=== PATIENT | male | born 1940 | race Hispanic/Latino ===

== ENCOUNTER 2024-12-21 17:43 | Emergency (ER) | payer OTHER ==
--- OUTSIDE RECORDS SUMMARY | 2024-12-21 17:47 | XMS REPORT | Continuity of Care Document ---
Author Name Unknown Address [address] [facility]. 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 Name Role Phone Mendez Small MD Primary Care Physician [phone] Jose Bernal Attending Clinician Unavail nataly Sandy MD, Alia Joya Attending Clinician + Rony Hammond Attending Clinician UnavailSelma Loyola Attending Clinician [phone] Anup Murray Attending Clinician Unavaila dede Renteria Attending Clinician Unavailable Mendez Small Admitting Clinician Unavailable Jose Bernal Admitting Clinician Unavail able Physician, No Primary or Family Admitting Clinic alex Unavailable Dexter Admitting Clinician Unavailable Payers Payer Name Policy Type Policy Number Effective Date Expirati on Date Source Problems Condition Name Condition Details Condition Category Status Onset Date Resolution Date Last Treatment Date Treating Clinician Comments Source Alzheimer' s disease Alzheimer' s disease Disease Active 03-27 00:00: 00 Memelizabeth l Javi Epic 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 03-27 00:00: 00 Anyaoria l Javi Epic Memory loss Memory loss Disease Active 03-27 00:00: 00 Anyaoria l Colo Epic 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 03-27 00:00: 00 Anyaoria l Colo Epic Allergies, Adverse Reactions, Alerts Allergy Name Allergy Type Status Severity Reaction(s) Onset Date Inactive Date Treating Clinician Comments Source No Known Allergie s DA Active U 2023-11 00:00: 00 [facility] No Known Allergie s DA Active U 2021-11 00:00: 00 [facility] No Known Allergie s DA Active U 2018-11 00:00: 00 [facility] No Known Allergie s DA Active U 01-15 00:00: 00 [facility] Social History Social Habit Start Date Stop Date Quantity Comments Source Gender identity 2024-02-07 14:17:32 Identifies as male gender (finding) [facility] Sexual orientation [facility] Smoking Status Start Date Stop Date Source Tobacco smoking consumption unknown [facility] Medications Ordered Medication Name Filled Medication Name Start Date Stop Date Current Medication? Ordering Clinician Indication Dosage Frequency Signature (SIG) Comments Components Source sertraline (Zoloft) 25 MG tablet sertraline (Zoloft) 25 MG tablet 2023-11- 00:00: 00 Yes 50mg QD TAKE 2 TABLETS BY MOUTH EVERY DAY Derek hernandez Colo Epic sertraline (Zoloft) 25 MG tablet sertraline (Zoloft) 25 MG tablet 08-12 00:00: 00 11-11 00:00 :00 No 50mg QD TAKE 2 TABLETS BY MOUTH EVERY DAY [facility] sertraline (Zoloft) 25 MG tablet sertraline (Zoloft) 25 MG tablet 05-21 00:00: 00 08-12 00:00 :00 No 50mg QD TAKE 2 TABLETS BY MOUTH EVERY DAY [facility] LORazepam (Ativan) 0.5 MG tablet LORazepam (Ativan) 0.5 MG tablet 03-27 14:38: 31 Yes 1{tbl} 1 tablet 1 time each day at the same time. [facility] QUEtiapine (SEROquel) 50 MG tablet QUEtiapine (SEROquel) 50 MG tablet 03-21 21:54: 16 Yes TAKE 1 TABLET BY MOUTH EVERY MORNING AND 2 TABLETS BY MOUTH EVERY EVENING for [address] pantoprazol e (ProtoNix) 40 MG EC tablet pantoprazol e (ProtoNix) 40 MG EC tablet 03-21 21:54: 16 Yes 1{tbl} 1 tablet Orally Once a day for 30 day(s) [facility] donepezil (Aricept) 5 MG tablet donepezil (Aricept) 5 MG tablet 03-21 21:54: 16 Yes TAKE 1 TABLET BY MOUTH ONCE A DAY IN THE MORNING WITH BREAKFAST Orally as directed for [address] Encounters Start Date/Time End Date/Time Encounter Type Admission Type Attending [facility] Care Facility Care Department Encounter ID Source 2020-10-15 12:04:00 Inpatient [facility] [id number] [facility] 2019-06-08 14:16:00 Inpatient YU BernalJose [facility] [id number] [facility] 2024-11-10 00:00:00 2024-11-11 08:45:22 Alia Chappell [id number] Derek Moreiraann Epic 2024-10-07 12:43:00 2024-10-07 18:28:00 Emergency EM oRny Hammond [facility] [id number] 42 [facility] 2024-10-07 12:43:00 2024-10-07 18:28:00 Emergency EM Rony Hammond [facility] [id number] 42 [facility] 2024-08-12 00:00:00 2024-08-12 13:19:46 Refill Selma Jiménezadena [id number] [facility]24-[facility]-19 00:00:00 2024-05-21 16:50:11 Refill Selma Jiménezadena [id number] [facility] 2022-09-29 14:38:00 2022-09-29 15:47:00 Emergency EM Anup Murray [facility] [id number] 31 [facility] 2022-09-29 14:38:00 2022-09-29 15:47:00 Emergency EM Anup Murray [facility] [id number] [facility] 2022-01-16 06:55:00 2022-01-16 06:55:00 Outpatient [facility] VFP VFP [id number] [facility] Results Test Description Test Time Test Comments Results Result Co mments Source Urine Source? Clean CatchDRUGS OF ABUSE SCREEN [id number] 17:41:00* Test Item Value Reference Range Interpretation Comme nts URN COCAINE (test code = COCAURN) NEGATIVE See_Comment [Automated messa ge] The system which generated this result transmitted reference range: <300 ng/mL. The reference range was not used to interpret this result as normal/abnormal. URN CANNABINOIDS (test code = CANNABURN) NEGATIVE See_Comment [Automated mes katarina] The system which generated this result transmitted reference range: <50 ng/mL. The reference range was not used to interpret this result as normal/abnormal. URN AMPHETAMINE (test code = AMPHETURN) NEGATIVE See_Comment [Automated mes katarina] The system which generated this result transmitted reference range: <1000 ng/mL. The reference range was not used to interpret this result as normal/abnormal. URN BARBITURATE (test code = BARBITURN) NEGATIVE See_Comment [Automated mes katarina] The system which generated this result transmitted reference range: <200 ng/mL. The reference range was not used to interpret this result as normal/abnormal. URN BENZODIAZEPINE (test code = BENZOURN) POSITIVE See_Comment [Automated mess age] The system which generated this result transmitted reference range: <200 ng/mL. The reference range was not used to interpret this result as normal/abnormal. URN OPIATES (test code = OPIATURN) NEGATIVE See_Comment [Automated messa ge] The system which generated this result transmitted reference range: <300 ng/mL. The reference range was not used to interpret this result as normal/abnormal. URN PHENCYCLIDINE (PCP) (test code = PHENCURN) NEGATIVE See_Comment [Automate d message] The system which generated this result transmitted reference range: <25 ng/mL. The reference range was not used to interpret this result as normal/abnormal. URN METHADONE (test code = METHAURN) NEGATIVE See_Comment [Automated messa ge] The system which generated this result transmitted reference range: <300 ng/mL. The reference range was not used to interpret this result as normal/abnormal. Urine Source? Clean CatchCOVID 19 INHOUSE [id number] 14:49:00* Test Item Value Reference Range Interpretation Comme nts COVID 19 INHOUSE AG (test co de = [id number]) NEGATIVE NEGATIVE BASIC METABOLIC [id number] 14:39:00* Test Item Value Reference Range Interpretation Comme nts SODIUM (test code = NA) 139 mmol/L 136-145 N POTASSIUM (test code = K) 3.9 mmol/L 3.5-5.1 N CHLORIDE (test code = CL) 105.0 mmol/L 98-107 N CARBON DIOXIDE (test code = CO2) 26.0 mmol/L 21-32 N ANION GAP (test code = GAP) 11.9 mmol/L 10-20 N GLUCOSE (test code = GLU) 88 mg/dL 74-106 N BLOOD UREA NITROGEN (test code = BUN) 11 mg/dL 7-18 N GLOMERULAR FILTRATION RATE (test code = GFR) > 60 mL/min >=60 The Glomerular Filtration Rate is a calculated parameterbased on serum Creatinine, patient age and sex. GFR valuesless than 60 mL/min/1.73 square meters are indicative ofChronic Kidney Disease. Values less than 15 mL/min/1.73square meters indicate Kidney failure. The calculation forGFR is based on the CKD-EPI (2020) calculation. This formulais race indifferent and is the recommended formula for GFRby the National Kidney Foundation for Adults.The GFR will not calculate if the sex is unknown or if thepatient's age is <18 years. CREATININE (test code = CREAT) 1.00 mg/dL 0.7-1.3 N BUN/CREATININE RATIO (test code = BUN/CREA) 10.8 10-20 N CALCIUM (test code = CA) 9.2 mg/dL 8.5-10.1 N HEPATIC FUNCTION [id number] 14:39:00* Test Item Value Reference Range Interpretation Comme nts TOTAL PROTEIN (test code = PROT) 7.8 gram/dL 6.4-8.2 N ALBUMIN (test code = ALB) 4.0 g/dL 3.4-5.0 N GLOBULIN (test code = GLOB) 3.8 gram/dL 2.7-4.2 N ALBUMIN/GLOBULIN RATIO (test code = A/G) 1.1 0.75-1.50 N BILIRUBIN TOTAL (test code = BILT) 0.50 mg/dL 0.0-1.0 N BILIRUBIN DIRECT (test code = BILD) 0.20 mg/dL 0.0-0.20 N SGOT/AST (test code = AST) 16 IUnit/L 15-37 N SGPT/ALT (test code = ALT) < 7 IUnit/L 12-78 L ALKALINE PHOSPHATASE TOTAL (test code = ALKP) 96 IUnit/L 45-117 N Note change in reference range due to change in reagent. [id number] 14:39:00* Test Item Value Reference Range Interpretation Comme nts ALCOHOL (test code = ALC) < 3 mg/dL 0-3 N INTERPRETATION: ETHYL ALCOHOL VALUES 50 MG/DL - NOT INTOXICATED 100 MG/DL - INTOXICATED 350-450 MG/DL- SEVERELY INTOXICATED >= 550 MG/DL - FATAL INTOXICATION CBC W/O [id number] 14:22:00* Test Item Value Reference Range Interpretation Comme nts WHITE BLOOD CELL (test code = WBC) 6.2 K/mm3 4.5-12.5 N RED BLOOD CELL (test code = RBC) 4.11 mill/mm3 4.0-5.8 N HEMOGLOBIN (test code = HGB) 12.9 gram/dL 13.0-17.5 L HEMATOCRIT (test code = HCT) 38.4 % 42.0-52.0 L MEAN CELL VOLUME (test code = MCV) 93.4 fL 80-98 N MEAN CELL HGB (test code = MCH) 31.4 picogram 27.0-33.0 N MEAN CELL HGB CONCETRATION (test code = MCHC) 33.6 gram/dL 33.0-36.0 N RED CELL DISTRIBUTION WIDTH (test code = RDW) 12.8 % 11.6-16.2 N PLATELET COUNT (test code = PLT) 315 K/mm3 150-450 N MEAN PLATELET VOLUME (test c ode = MPV) 10.1 fL 6.7-11.0 N - XR CHEST 1 [id number] 15:29:00 [facility] ([facility])Name: JUSTA HERNANDEZ : 1940 Sex: M FAX: Anup Murray [phone] [place]: B St: DEP Name: JUSTA HERNANDEZ [facility] : 1940ge/S: 82/M [address] [facility] [id number] Loc: [place] [address] Phys: Anup Murray MD Acct: [id number] Dis Date: Status: DEP ER PHONE #: [phone] Exam Date: 09/29/2022 1513 FAX #: [phone] Reason: anxiety, sob EXAMS: CPT CODE: [id number] XR CHEST 1 V 46457 HISTORY: Anxiety and shortness of breath. COMPARISON: None available. Location: TH. No acute infiltrates, effusion or congestion is noted. Hyperinflation and scarring. The cardiac and mediastinal silhouette arewithin normal limits. IMPRESSION: No acute infiltrates, effusion or congestion. Electronically S igned by Izabella Carter on 09/29/2022 at 1529 Reported and signed by: Tomás Carter M.D. CC: Anup Murray MD Technologist: Cristhian Vargas RT(R) Trnscrd Date/Time/By: 09/29/2022 (152) : By: [email or web address] Orig Print D/T: S: 09/29/2022 (2110) PAGE 1 Signed Report- XR CHEST 1 [id number] 15:29:00 [facility] ([facility])Name: JUSTA HERNANDEZ : 1938 Sex: M FAX: Anup Murray [phone] [place]: St: REG Name: JUSTA HERNANDEZ [facility] : 1938 Age/S: 84/M [address] [facility] Unit #: [id number] Loc: [place] [address] Phys: Anup Murray [facility] Acct: [id number] Dis Date: Status: REG ER PHONE #: [phone] Exam Date: 09/29/2022 1513 FAX#: [phone] Reason: anxiety, sob EXAMS: CPT CODE: [id number] XR CHEST 1 V 56945 HISTORY: Anxiety and shortness of breath. COMPARISON: None available. Location: TH. No acute infiltrates, effusion or congestion is noted. Hyperinflation and scarring. The cardiac and mediastinal silhouette are within normal limits. IMPRESSION: No acute infiltrates, effusion or congestion. Electronically Signedby Izabella Carter on 09/29/2022 at 1529 Reported and signed by: Tomás Carter M.D. CC: Anup Murray MD Technologist: Cristhian Vargas RT(R) Trnscrd Date/Time/By: 09/29/2022 (1529) : By: [email or web address] Orig Print D/T: S: 09/29/2022 (153) PAGE 1 Signed ReportBASIC METABOLIC [id number] 13:24:00* Test Item Value Reference Range Interpretation Comme nts SODIUM (test code = NA) 140 mmol/L 136-145 N POTASSIUM (test code = K) 3.7 mmol/L 3.5-5.1 N CHLORIDE (test code = CL) 106.0 mmol/L 98-107 N CARBON DIOXIDE (test code = CO2) 26.0 mmol/L 21-32 N ANION GAP (test code = GAP) 11.7 10-20 N GLUCOSE (test code = GLU) 151 mg/dL 74-106 H BLOOD UREA NITROGEN (test code = BUN) 16 mg/dL 7-18 N GLOMERULAR FILTRATION RATE (test code = GFR) > 60 mL/min >=60 Estimated GFR by using Modified MDRD formula.Chronic kidney disease is defined as either kidney damageor GFR <60 mL/min/1.73 m2 for >3 months. CREATININE (test code = CREAT) 1.00 mg/dL 0.7-1.3 N BUN/CREATININE RATIO (test code = BUN/CREA) 16.2 10-20 N CALCIUM (test code = CA) 8.8 mg/dL 8.5-10.1 N [id number] 13:24:00* Test Item Value Reference Range Interpretation Comme nts TROPONIN-I (test code = TROPI) <0.015 ng/mL 0-0.045 N BASIC METABOLIC [id number] 13:07:00* Test Item Value Reference Range Interpretation Comme nts SODIUM (test code = NA) 140 mmol/L 136-145 N POTASSIUM (test code = K) 3.7 mmol/L 3.5-5.1 N CHLORIDE (test code = CL) 106.0 mmol/L 98-107 N CARBON DIOXIDE (test code = CO2) mmol/L 21-32 ANION GAP (test code = GAP) 10-20 GLUCOSE (test code = GLU) mg/dL 74-106 BLOOD UREA NITROGEN (test co de = BUN) mg/dL 7-18 GLOMERULAR FILTRATION RATE ( test code = GFR) mL/min >=60 CREATININE (test code = CREAT) mg/dL 0.7-1.3 BUN/CREATININE RATIO (test c ode = BUN/CREA) 10-20 CALCIUM (test code = CA) mg/dL 8.5-10.1 [id number] 13:07:00* Test Item Value Reference Range Interpretation Comme nts TROPONIN-I (test code = TROPI) ng/mL 0-0.045 - XR CHEST 1 [id number] 13:05:00 [facility])Name: JUSTA HERNANDEZ : 1940 Sex: M FAX: Giovanny Larios MD [phone] [place]: B St: PRE FAX: Mendez Muse MD [phone] Name: JUSTA HERNANDEZ [facility] : 1940 Age/S: 80/M [address] [facility] Unit #: [id number] Loc: [place] [address] Phys: Giovanny Larios MD Acct: [id number] Dis Date: Status: PRE ER PHONE #: [phone] Exam Date: 10/15/2020 1247 FAX #: [phone] Reason: CHEST PAIN EXAMS: CPT CODE: [id number] XR CHEST 1 V 98171 REASON FOR EXAM: CHEST PAIN Exam Order Date: 10/15/2020 12:30 PM Ordering M.D.: Giovanny Larios MD PROCEDURE: - XR CHEST 1 V COMPARISON: Chest x-ray and CT scan June 08, 2019 FINDINGS: There is subsegmental atelectasis in the lung bases. Mid and upper lungs are clear. Cardiomediastinal silhouette is normal in size for technique. The mediastinal contours are within normal limits. Musculoskeletal structures are within normal limits. The visualized upper abdomen is within normal limits. IMPRESSION: Bibasilar subsegmental atelectasis. Mid and upper lungs are clear. Location: [facility] at 1305 Reported and signed by: Evelio Mcgowan MD CC: Giovanny Larios MD; Mendez Small Technologist: Olivia Bland RT(R) Trnscrd Date/Time/By: 10/15/2020 (0574) : By: [email or web address] Orig Print D/T: S: 10/15/2020 (5182) PAGE 1 Signed ReportCBC W/O [id number] 13:01:00* Test Item Value Reference Range Interpretation Comme nts WHITE BLOOD CELL (test code = WBC) 13.3 K/mm3 4.5-12.5 H RED BLOOD CELL (test code = RBC) 4.41 mill/mm3 4.0-5.8 N HEMOGLOBIN (test code = HGB) 13.6 gram/dL 13.0-17.5 N HEMATOCRIT (test code = HCT) 40.4 % 42.0-52.0 L MEAN CELL VOLUME (test code = MCV) 91.6 fL 80-98 N MEAN CELL HGB (test code = MCH) 30.8 picogram 27.0-33.0 N MEAN CELL HGB CONCETRATION (test code = MCHC) 33.7 gram/dL 33.0-36.0 N RED CELL DISTRIBUTION WIDTH (test code = RDW) 13.3 % 11.6-16.2 N PLATELET COUNT (test code = PLT) 356 K/mm3 150-450 N MEAN PLATELET VOLUME (test c ode = MPV) 10.2 fL 6.7-11.0 N BASIC METABOLIC [id number] 17:26:00* Test Item Value Reference Range Interpretation Comme nts SODIUM (test code = NA) 144 mmol/L 136-145 N POTASSIUM (test code = K) 4.1 mmol/L 3.5-5.1 N CHLORIDE (test code = CL) 109.0 mmol/L 98-107 H CARBON DIOXIDE (test code = CO2) 27.0 mmol/L 21-32 N ANION GAP (test code = GAP) 12.1 10-20 N GLUCOSE (test code = GLU) 86 mg/dL 74-106 N BLOOD UREA NITROGEN (test code = BUN) 16 mg/dL 7-18 N GLOMERULAR FILTRATION RATE (test code = GFR) > 60 mL/min >=60 Estimated GFR by using Modified MDRD formula.Chronic kidney disease is defined as either kidney damageor GFR <60 mL/min/1.73 m2 for >3 months. CREATININE (test code = CREAT) 0.90 mg/dL 0.7-1.3 N BUN/CREATININE RATIO (test code = BUN/CREA) 17.8 10-20 N CALCIUM (test code = CA) 8.6 mg/dL 8.5-10.1 N [id number] 17:26:00* Test Item Value Reference Range Interpretation Comme nts TROPONIN-I (test code = TROPI) <0.015 ng/mL 0-0.045 N - CT HEAD/BRAIN W/O [id number] 17:17:00Name: JUSTA HERNANDEZ [facility] : 1940 Age/S: 79 / M [address] [facility] Unit #: [id number] Loc: [place] [address] Phys: AnselmoJo DO Acct: [id number] Dis Date: Status: REG ER PHONE #: [phone] Exam Date: 09/18/2019 1654 FAX #: [phone] Reason: dizziness EXAMS: CPT CODE: [id number] CT HEAD/BRAIN W/O CONT 23514 HISTORY: Dizziness. COMPARISON: None available. Location:TH. CT brain without contrast: Automated exposure control. No acute intracranial bleeds or extra-axial collections are noted. No acute territorial vascular infarction is noted. Cavum septum pellucidum. The sulci, gyri, ventricles and subarachnoid spaces and the basilar cisterns are normal for patient's age. No herniation or hydrocephalus or midline shift is noted. Mild periventricular ischemic gliosis is noted. Age- appropriate atrophy is noted as well. Portions of the visualized paranasal sinuses are normal. No obvious bony calvarial defect is noted. IMPRESSION: No acute intracranial bleeds or extra-axial collections. No acute territorial vascular infarction. No herniation or hydrocephalusor midline shift. 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 at 1717 Reported and signed by: Tomás Carter M.D. CC: Jo Briones DO Technologist:Opal ROUSSEAU(R)(CT) CTDI: DLP: Trnscb Date/Time: 09/18/2019 (1717) [email or web address] Orig Print D/T: S: 09/18/2019 (6279) PAGE 1 Signed ReportURINALYSIS [id number] 17:04:00* Test Item Value Reference Range Interpretation Comme nts UA COLOR (test code = COLU) Light-Yellow YELLOW UA APPEARANCE (test code = APPU) CLEAR CLEAR UA GLUCOSE DIPSTICK (test code = DGLUU) NEGATIVE mg/dL NEGATIVE UA BILIRUBIN DIPSTICK (test code = BILU) NEGATIVE mg/dL NEGATIVE UA KETONE DIPSTICK (test code = KETU) NEGATIVE mg/dL NEGATIVE UA SPECIFIC GRAVITY (test code = SGU) 1.015 1.001-1.035 UA BLOOD DIPSTICK (test code = KARRIE) 0.03 mg/dL (Trace) mg/dL NEGATIVE A UA PH DIPSTICK (test code = MARCELLUS) 6.5 5.0-8.0 UA PROTEIN DIPSTICK (test code = PROU) NEGATIVE mg/dL NEGATIVE UA UROBILINIOGEN DIPSTICK (test code = URO) Normal mg/dL NEGATIVE UA NITRITE DIPSTICK (test code = DENIZ) NEGATIVE NEGATIVE UA LEUKOCYTE ESTERASE W REFLEX (test code = LEUUR) NEGATIVE Yoselyn/uL NEGATIVE UA WBC (test code = WBCU) 0-5 per HPF 0-5 UA RBC (test code = RBCU) 0-2 #/HPF 0-5 UA EPITHELIAL CELLS (test code = EPIU) Few (2-5/hpf) per HPF FEW UA BACTERIA (test code = BACU) FEW #/HPF NONE A UA MUCUS (test code = MUCU) FEW #/LPF FEW Urine Source? Clean CatchCBC W/O [id number] 17:03:00* Test Item Value Reference Range Interpretation Comme nts WHITE BLOOD CELL (test code = WBC) 6.8 K/mm3 4.5-12.5 N RED BLOOD CELL (test code = RBC) 4.11 mill/mm3 4.0-5.8 N HEMOGLOBIN (test code = HGB) 12.7 gram/dL 13.0-17.5 L HEMATOCRIT (test code = HCT) 38.2 % 42.0-52.0 L MEAN CELL VOLUME (test code = MCV) 92.9 fL 80-98 N MEAN CELL HGB (test code = MCH) 30.9 picogram 27.0-33.0 N MEAN CELL HGB CONCETRATION (test code = MCHC) 33.2 gram/dL 33.0-36.0 N RED CELL DISTRIBUTION WIDTH (test code = RDW) 13.0 % 11.6-16.2 N PLATELET COUNT (test code = PLT) 254 K/mm3 150-450 N MEAN PLATELET VOLUME (test c ode = MPV) 9.8 fL 6.7-11.0 N URINALYSIS [id number] 17:03:00* Test Item Value Reference Range Interpretation Comme nts UA COLOR (test code = COLU) Light-Yellow YELLOW UA APPEARANCE (test code = APPU) CLEAR CLEAR UA GLUCOSE DIPSTICK (test code = DGLUU) NEGATIVE mg/dL NEGATIVE UA BILIRUBIN DIPSTICK (test code = BILU) NEGATIVE mg/dL NEGATIVE UA KETONE DIPSTICK (test code = KETU) NEGATIVE mg/dL NEGATIVE UA SPECIFIC GRAVITY (test code = SGU) 1.015 1.001-1.035 UA BLOOD DIPSTICK (test code = KARRIE) 0.03 mg/dL (Trace) mg/dL NEGATIVE A UA PH DIPSTICK (test code = MARCELLUS) 6.5 5.0-8.0 UA PROTEIN DIPSTICK (test code = PROU) NEGATIVE mg/dL NEGATIVE UA UROBILINIOGEN DIPSTICK (test code = URO) Normal mg/dL NEGATIVE UA NITRITE DIPSTICK (test code = DENIZ) NEGATIVE NEGATIVE UA LEUKOCYTE ESTERASE W REFLEX (test code = LEUUR) NEGATIVE Yoselyn/uL NEGATIVE UA WBC (test code = WBCU) per HPF 0-5 UA RBC (test code = RBCU) per HPF 0-5 UA EPITHELIAL CELLS (test code = EPIU) per HPF Few UA BACTERIA (test code = BACU) per HPF NONE Urine Source? Clean [id number] 23:33:00* Test Item Value Reference Range Interpretation Comme nts TROPONIN-I (test code = TROPI) <0.015 ng/mL 0-0.045 N COMMENTS TO INSERT MOLDING OPERATOR: COLLECT 3 HOURS AFTER PREVIOUS SAMPLETROPONIN-I 2019-06-08 20:42:00* Test Item Value Reference Range Interpretation Comme nts TROPONIN-I (test code = TROPI) <0.015 ng/mL 0-0.045 N COMMENTS TO INSERT MOLDING OPERATOR: COLLECT 3 HOURS AFTER PREVIOUS SAMPLEURINALYSIS [id number] 14:34:00* Test Item Value Reference Range Interpretation Comme nts UA COLOR (test code = COLU) Light-Yellow YELLOW UA APPEARANCE (test code = APPU) CLEAR CLEAR UA GLUCOSE DIPSTICK (test code = DGLUU) NEGATIVE mg/dL NEGATIVE UA BILIRUBIN DIPSTICK (test code = BILU) NEGATIVE mg/dL NEGATIVE UA KETONE DIPSTICK (test code = KETU) NEGATIVE mg/dL NEGATIVE UA SPECIFIC GRAVITY (test code = SGU) 1.014 1.001-1.035 UA BLOOD DIPSTICK (test code = KARRIE) Negative mg/dL NEGATIVE UA PH DIPSTICK (test code = MARCELLUS) 6.5 5.0-8.0 UA PROTEIN DIPSTICK (test code = PROU) NEGATIVE mg/dL NEGATIVE UA UROBILINIOGEN DIPSTICK (test code = URO) Normal mg/dL NEGATIVE UA NITRITE DIPSTICK (test code = DENIZ) NEGATIVE NEGATIVE UA LEUKOCYTE ESTERASE W REFLEX (test code = LEUUR) NEGATIVE Yoselyn/uL NEGATIVE UA WBC (test code = WBCU) 0-5 per HPF 0-5 UA RBC (test code = RBCU) 0-2 #/HPF 0-5 UA EPITHELIAL CELLS (test code = EPIU) None seen per HPF Few UA BACTERIA (test code = BACU) NONE SEEN per HPF NONE UA MUCUS (test code = MUCU) FEW #/LPF FEW Urine Source? Clean Catch- CTA [id number] 13:51:00Name: JUSTA HERNANDEZ [facility] : 1940 Age/S: 79 / M [address] Unit #: [id number] Loc: [place] [address] Phys: Selma Ferro MD Acct: [id number] Dis Date: Status: REG ER PHONE #: [phone] Exam Date: 06/08/2019 1326 FAX #: [phone] Reason: sob EXAMS: CPT CODE: [id number] CTA CHEST 65222 HISTORY: Shortness of breath. COMPARISON: None available. CTA CHEST: 3-D images. 100 mL of Isovue-370. Automated exposure control. No aortic dissection or aneurysm. No pulmonary embolism. Unremarkable SVC. Neck vasculature is unopacified and limited in evaluation. Unremarkable small thyroid glands. Esophageal wall is not thickened. No pathologic adenopathy. Cardiomegaly without pericardial effusion. Visualized upper abdomen is unremarkable. Study is slightly motion limited. Subcutaneous tissues and the musculature are normal in appearance. No lytic or blastic lesionsare noted within skeleton. Lungs are clear of infiltrates, effusion or congestion. No bronchiectasis, honeycombing or fibrosis or endobronchial lesions. No parenchymal mass or nodules. Mild pleural thickening in both upper lobes with pleural-based calcifications could suggest prior asbestos exposure. No evidence for asbestosis is noted. Dependent changes. IMPRESSION: No pulmonary embolism with unremarkable aorta without aneurysm or dissection. The lungs are clear. at 1351 Reported and signed by: Tomás Carter M.D. CC: Mendez Small; Selma Ferro MD Technologist:RT Justino(Yasmeen),CT CTDI: DLP: Trnscb Date/Time: 06/08/2019 (1351) [email or web address] Orig Print D/T: S: 06/08/2019 (0959) PAGE 1 Signed [id number] 13:23:00* Test Item Value Reference Range Interpretation Comme nts GLUBED (test code = GLUBED) 90 mg/dL 74-106 N Performed by cer leandro automatic pad making machine operator at [facility] URINALYSIS [id number] 12:47:00* Test Item Value Reference Range Interpretation Comme nts UA COLOR (test code = COLU) Light-Yellow YELLOW UA APPEARANCE (test code = APPU) CLEAR CLEAR UA GLUCOSE DIPSTICK (test code = DGLUU) NEGATIVE mg/dL NEGATIVE UA BILIRUBIN DIPSTICK (test code = BILU) NEGATIVE mg/dL NEGATIVE UA KETONE DIPSTICK (test cod e = KETU) NEGATIVE mg/dL NEGATIVE UA SPECIFIC GRAVITY (test code = SGU) 1.014 1.001-1.035 UA BLOOD DIPSTICK (test code = KARRIE) Negative mg/dL NEGATIVE UA PH DIPSTICK (test code = MARCELLUS) 6.5 5.0-8.0 UA PROTEIN DIPSTICK (test code = PROU) NEGATIVE mg/dL NEGATIVE UA UROBILINIOGEN DIPSTICK (test code = URO) Normal mg/dL NEGATIVE UA NITRITE DIPSTICK (test code = DENIZ) NEGATIVE NEGATIVE UA LEUKOCYTE ESTERASE W REFLEX (test code = LEUUR) NEGATIVE Yoselyn/uL NEGATIVE UA WBC (test code = WBCU) 0-5 per HPF 0-5 UA RBC (test code = RBCU) 0-2 #/HPF 0-5 UA EPITHELIAL CELLS (test code = EPIU) per HPF Few UA BACTERIA (test code = BACU) per HPF NONE UA MUCUS (test code = MUCU) FEW #/LPF FEW Urine Source? Clean CatchURINALYSIS [id number] 12:43:00* Test Item Value Reference Range Interpretation Comme nts UA COLOR (test code = COLU) Light-Yellow YELLOW UA APPEARANCE (test code = APPU) CLEAR CLEAR UA GLUCOSE DIPSTICK (test code = DGLUU) NEGATIVE mg/dL NEGATIVE UA BILIRUBIN DIPSTICK (test code = BILU) NEGATIVE mg/dL NEGATIVE UA KETONE DIPSTICK (test cod e = KETU) NEGATIVE mg/dL NEGATIVE UA SPECIFIC GRAVITY (test code = SGU) 1.014 1.001-1.035 UA BLOOD DIPSTICK (test code = KARRIE) Negative mg/dL NEGATIVE UA PH DIPSTICK (test code = MARCELLUS) 6.5 5.0-8.0 UA PROTEIN DIPSTICK (test code = PROU) NEGATIVE mg/dL NEGATIVE UA UROBILINIOGEN DIPSTICK (test code = URO) Normal mg/dL NEGATIVE UA NITRITE DIPSTICK (test code = DENIZ) NEGATIVE NEGATIVE UA LEUKOCYTE ESTERASE W REFLEX (test code = LEUUR) NEGATIVE Yoselyn/uL NEGATIVE UA WBC (test code = WBCU) per HPF 0-5 UA RBC (test code = RBCU) per HPF 0-5 UA EPITHELIAL CELLS (test code = EPIU) per HPF Few UA BACTERIA (test code = BACU) per HPF NONE Urine Source? Clean CatchB-TYPE NATRIURETIC [id number] 12:43:00* Test Item Value Reference Range Interpretation Comme nts B-TYPE NATRIURETIC PEPTIDE (test code = BNP) 52.88 pgram/mL 0-100 N COMPREHENSIVE METABOLIC [id number] 12:28:00* Test Item Value Reference Range Interpretation Comme nts SODIUM (test code = NA) 142 mmol/L 136-145 N POTASSIUM (test code = K) 4.0 mmol/L 3.5-5.1 N CHLORIDE (test code = CL) 109.0 mmol/L 98-107 H CARBON DIOXIDE (test code = CO2) 27.0 mmol/L 21-32 N ANION GAP (test code = GAP) 10.0 10-20 N GLUCOSE (test code = GLU) 66 mg/dL 74-106 L BLOOD UREA NITROGEN (test code = BUN) 11 mg/dL 7-18 N GLOMERULAR FILTRATION RATE (test code = GFR) > 60 mL/min >=60 Estimated GFR by using Modified MDRD formula.Chronic kidney disease is defined as either kidney damageor GFR <60 mL/min/1.73 m2 for >3 months. CREATININE (test code = CREAT) 0.90 mg/dL 0.7-1.3 N BUN/CREATININE RATIO (test code = BUN/CREA) 12.0 10-20 N TOTAL PROTEIN (test code = PROT) 8.2 gram/dL 6.4-8.2 N ALBUMIN (test code = ALB) 4.0 g/dL 3.4-5.0 N GLOBULIN (test code = GLOB) 4.2 gram/dL 2.7-4.2 N ALBUMIN/GLOBULIN RATIO (test code = A/G) 1.0 0.75-1.50 N CALCIUM (test code = CA) 9.3 mg/dL 8.5-10.1 N BILIRUBIN TOTAL (test code = BILT) 0.60 mg/dL 0.0-1.0 N SGOT/AST (test code = AST) 13 IUnit/L 15-37 L SGPT/ALT (test code = ALT) 13 IUnit/L 12-78 N ALKALINE PHOSPHATASE TOTAL (test code = ALKP) 89 IUnit/L 45-117 N Note change in reference range due to change in reagent. [id number] 12:28:00* Test Item Value Reference Range Interpretation Comme nts LIPASE (test code = LIP) 106 U/L 73.0-393.0 N [id number] 12:28:00* Test Item Value Reference Range Interpretation Comme nts CKMB (test code = CKMBT) < 1.0 ng/mL 0-6.0 N [id number] 12:28:00* Test Item Value Reference Range Interpretation Comme nts TROPONIN-I (test code = TROPI) <0.015 ng/mL 0-0.045 N [id number] 12:28:00* Test Item Value Reference Range Interpretation Comme nts ALCOHOL (test code = ALC) < 3 mg/dL 0.0-3.0 N -INTERPRE TIVE DATA NOTE: POSITIVE SCREENING RESULTS SHOULD BE CONSIDERED PRESUMPTIVE.WHEN COLLECTED FOR MEDICAL PURPOSES ONLY. SPECIMEN WILL NOTBE COLLECTED BY CHAIN OF CUSTODY.IF A CONFIRMATION OF POSITIVE RESULTS IS DESIRED, ACONFIRMATION TEST MUST BE REQUESTED BY THE PHYSICIAN AT ANADDITIONAL CHARGE TO THE PATIENT. COMPREHENSIVE METABOLIC [id number] 12:18:00* Test Item Value Reference Range Interpretation Comme nts SODIUM (test code = NA) 142 mmol/L 136-145 N POTASSIUM (test code = K) 4.0 mmol/L 3.5-5.1 N CHLORIDE (test code = CL) 109.0 mmol/L 98-107 H CARBON DIOXIDE (test code = CO2) mmol/L 21-32 ANION GAP (test code = GAP) 10-20 GLUCOSE (test code = GLU) mg/dL 74-106 BLOOD UREA NITROGEN (test co de = BUN) mg/dL 7-18 GLOMERULAR FILTRATION RATE ( test code = GFR) mL/min >=60 CREATININE (test code = CREAT) mg/dL 0.7-1.3 BUN/CREATININE RATIO (test c ode = BUN/CREA) 10-20 TOTAL PROTEIN (test code = PROT) gram/dL 6.4-8.2 ALBUMIN (test code = ALB) g/dL 3.4-5.0 GLOBULIN (test code = GLOB) gram/dL 2.7-4.2 ALBUMIN/GLOBULIN RATIO (test code = A/G) 0.75-1.50 CALCIUM (test code = CA) mg/dL 8.5-10.1 BILIRUBIN TOTAL (test code = BILT) mg/dL 0.0-1.0 SGOT/AST (test code = AST) IUnit/L 15-37 SGPT/ALT (test code = ALT) IUnit/L 12-78 ALKALINE PHOSPHATASE TOTAL ( test code = ALKP) IUnit/L 45-117 [id number] 12:18:00* Test Item Value Reference Range Interpretation Comme nts LIPASE (test code = LIP) U/L 73.0-393.0 [id number] 12:18:00* Test Item Value Reference Range Interpretation Comme nts CKMB (test code = CKMBT) ng/mL 0-6.0 [id number] 12:18:00* Test Item Value Reference Range Interpretation Comme nts TROPONIN-I (test code = TROPI) ng/mL 0-0.045 [id number] 12:18:00* Test Item Value Reference Range Interpretation Comme nts ALCOHOL (test code = ALC) mg/dL 0-3 - XR CHEST 1 [id number] 12:08:00FAX: Mendez Muse MD [phone] [place]: St: [facility] FAX: Selma Taylor [phone] ------ Name: JUSTA HERNANDEZ [facility] : 1940 Age/S: 79/M [address] [facility]: [id number] Loc: [place] [address] Phys: Selma Ferro MD Acct: [id number] Dis Date: Status: REG ER PHONE #: [phone] Exam Date: 06/08/2019 1150 FAX #: [phone] Reason: sob EXAMS: CPT CODE: [id number] XR CHEST 1 V 85048 HISTORY: Shortness of breath. COMPARISON: January 15, 2017. No acute infiltrates, effusion or congestion is noted. Hyperinflation. Lung scarring. The cardiac and mediastinal silhouette are withinnormal limits. IMPRESSION: No acute infiltrates, effusion or congestion. at 1208 Reported and signed by: Tomás Carter M.D. CC: Mendez Small; Selma Ferro MD Technologist: KARINA WELLS JR Trnscrd Date/Time/By: 06/08/2019 (1207) : By: [email or web address] Orig Print D/T: S: 06/08/2019 (1589) PAGE 1 Signed ReportCBC W/AUTO [id number] 12:07:00 * Test Item Value Reference Range Interpretation Comme nts WHITE BLOOD CELL (test code = WBC) 6.6 K/mm3 4.5-12.5 N RED BLOOD CELL (test code = RBC) 5.20 mill/mm3 4.0-5.8 N HEMOGLOBIN (test code = HGB) 15.7 gram/dL 13.0-17.5 N HEMATOCRIT (test code = HCT) 47.1 % 42.0-52.0 N MEAN CELL VOLUME (test code = MCV) 90.6 fL 80-98 N MEAN CELL HGB (test code = MCH) 30.2 picogram 27.0-33.0 N MEAN CELL HGB CONCETRATION (test code = MCHC) 33.3 gram/dL 33.0-36.0 N RED CELL DISTRIBUTION WIDTH (test code = RDW) 12.7 % 11.6-16.2 N RED CELL DISTRIBUTION WIDTH SD (test code = RDW-SD) 41.9 fL 37.0-51.0 N PLATELET COUNT (test code = PLT) 275 K/mm3 150-450 N MEAN PLATELET VOLUME (test c ode = MPV) 10.1 fL 6.7-11.0 N NEUTROPHIL % (test code = NT%) 66.0 % 39.0-69.0 N IMMATURE GRANULOCYTE % (test code = IG%) 0.3 % 0.0-5.0 N LYMPHOCYTE % (test code = LY%) 22.0 % 25.0-55.0 L MONOCYTE % (test code = MO%) 8.7 % 0.0-10.0 N EOSINOPHIL % (test code = EO%) 2.4 % 0.0-5.0 N BASOPHIL % (test code = BA%) 0.6 % 0.0-1.0 N NUCLEATED RBC % (test code = NRBC%) 0.0 % 0-0 N NEUTROPHIL # (test code = NT#) 4.38 K/mm3 1.8-7.7 N IMMATURE GRANULOCYTE # (test code = IG#) 0.02 x10 3/uL 0-0.03 N LYMPHOCYTE # (test code = LY#) 1.46 K/mm3 1.0-5.0 N MONOCYTE # (test code = MO#) 0.58 K/mm3 0-0.8 N EOSINOPHIL # (test code = EO#) 0.16 K/mm3 0.0-0.5 N BASOPHIL # (test code = BA#) 0.04 K/mm3 0.0-0.2 N NUCLEATED RBC # (test code = NRBC#) 0.00 K/mm3 0.0-0.1 N MANUAL DIFF REQUIRED (test c ode = MDIFF) NO
--- NOTE | 2024-12-21 18:59 | RAD REPORT ---
EXAMINATION: Wrist Right 3 View CLINICAL INDICATION: Male, 84 years old. PAIN RIGHT COMPARISON: No prior exam. VIEWS: Three views FINDINGS: Distal radial impaction fracture and nondisplaced ulnar styloid fracture. The distal radial fracture probably extends to the articular surface though this is not clearly seen on the radiograph Slight dorsal tilt of the distal radius. No significant focal degenerative change. Other: n/a IMPRESSION: Distal radial impaction fracture with mild displacement. Ulnar styloid fracture.
[2024-12-21] MEDS ORDERED: ZIPRASIDONE MESYLA 20 MG/VIAL IM ONE (20:48)
[2024-12-21] MEDS ORDERED: IBUPROFEN 100 MG/5 ML UCUP ONE (20:49)
[2024-12-21] MEDS ORDERED: WATER FOR INJ,STERILE 10 ML ONE (20:49)
[2024-12-21] MEDS ORDERED: MIDAZOLAM HCL 5 ML ONE (22:26)
--- NOTE | 2024-12-22 00:06 | EDPHYS ---
Physician Documentation [facility] Name: Wilmar Fung Age: 84 yrs Sex: Male : 1940 Arrival Date: 12/21/2024 Time: 17:43 Bed 2 Private MD: ED Physician Jacob Morales HPI: 12/21 18:28 This 84 yrs old Male presents to ER via Wheelchair with complaints of Fall ms3 Injury, Wrist Injury. 18:28 Wilmar Fung is an 84-year-old male who presents to the Emergency Department with a ms3 wrist injury, following a possible fall. The [place] [facility] reported a fracture in his wrist, but the cause of the fracture is unclear. The initial x-ray from the [place] [facility] indicated a fracture of the lower end of the right ulna and radius. The wrist is swollen and red, but the patient reports no pain in the arm or wrist. The patient has a history of Alzheimer's disease and psychosis.. Historical: - Allergies: 18:21 No Known Allergies; ko1 - Home Meds: 18:21 Unable to obtain [Active]; ko1 - PMHx: 18:21 Depressive disorder; Alzheimer's disease; Hypertensive disorder; ko1 - Immunization history:: Adult Immunizations unknown. - Infectious Disease History:: Denies. - Social history:: Smoking status: Patient denies any tobacco usage or history of. ROS: 18:28 Constitutional: Negative for fever, and chills. Cardiovascular: Negative for chest ms3 pain, and palpitations. Respiratory: Negative for shortness of breath, cough, wheezing, and pleuritic chest pain, Abdomen/GI: Negative for abdominal pain, nausea, vomiting, diarrhea, and constipation, 18:28 MS/extremity: Positive for right wrist fracture, Exam: 18:28 Constitutional: This is a well developed, well nourished patient who is awake, alert, ms3 and in no acute distress. Cardiovascular: Regular rate and rhythm with a normal S1 and S2. No gallops, murmurs, or rubs. Normal PMI, no JVD. No pulse deficits. Respiratory: Lungs have equal breath sounds bilaterally, clear to auscultation and percussion. No rales, rhonchi or wheezes noted. No increased work of breathing, no retractions or nasal flaring. Abdomen/GI: Soft, non-tender, with normal bowel sounds. No distension or tympany. No guarding or rebound. No evidence of tenderness throughout. 18:28 Musculoskeletal/extremity: Extremities: noted in the right wrist: ecchymosis, swelling, Vital Signs: 18:15 BP 143 / 63; Pulse 76; Resp 18; Temp 97.4; Pulse Ox 98% ; ko1 22:30 BP 108 / 68; Pulse 71; Resp 16; Pulse Ox 95% on R/A; jb4 23:00 BP 112 / 50; Pulse 69; Resp 16; Pulse Ox 97% on R/A; jb4 02 00:00 BP 137 / 75; Pulse 68; Resp 16; Pulse Ox 95% on R/A; jb4 Radha Coma Score: 00:24 Eye Response: spontaneous(4). Motor Response: obeys commands(6). Verbal Response: bm8 oriented(5). Total: 15. Procedures: 00:10 Splinting: Splint applied to right wrist, right hand and palmar aspect of right forearm sp4 using Ortho 3D boot, Right forearm wrist sugar-tong splint. applied by myself. Examined by me, post splint application: neurovascular intact, 2+ distal pulses palpable, brisk capillary refill noted, Patient tolerated well, Sling was applied. Prior to splinting patient had to be given Versed IM and also Geodon IM for acute agitation. Moderate sedation was not done. MDM: 12/21 18:26 Medical Screening Exam initiated ms3 18:28 Differential diagnosis: closed head injury, contusion, fracture, sprain, strain. ms3 12/22 01:04 ED course: PROCEDURE: CT Head Without Intravenous Contrast CLINICAL INDICATION: The sp4 patient is 84 years old and is Male; fall TECHNIQUE: Axial computed tomography images of the head/brain without intravenous contrast. Sagittal and coronal reformatted images were created and reviewed. This CT exam was performed using one or more of the following dose reduction techniques: automated exposure control, adjustment of the mA and/or kV according to patient size, and/or use of iterative reconstruction technique. DLP: 904 mGy*cm COMPARISON: None. FINDINGS: BRAIN: Cerebral volume loss and chronic small vessel ischemic changes. No hemorrhage. No mass effect or midline shift. VENTRICLES: Unremarkable. No ventriculomegaly. BONES/JOINTS: Unremarkable. No acute fracture. SOFT TISSUES: Unremarkable. VASCULATURE: Vascular calcifications. SINUSES: Unremarkable as visualized. No acute sinusitis. MASTOID AIR CELLS: Unremarkable as visualized. No mastoid effusion. IMPRESSION: 1. No acute intracranial hemorrhage, hydrocephalus or herniation. 2. Cerebral volume loss and chronic small vessel ischemic changes. Consider MRI brain for further evaluation. Electronically signed by: Rafa Streeter DO 12/22/2024 12:54 AM. 01:05 Data reviewed: vital signs, nurses notes, EMS record, old medical records, radiologic sp4 studies, CT scan, plain films. Consideration of Admission/Observation Escalation of care including admission/observation considered. ED course: 84-year-old male presents with acute right distal radius fracture associated with acute agitation multiple falls. Agitation responded to Geodon and Versed. Patient forearm sugar-tong splint received right, arm sling and sugar-tong splint. Stable for discharge [facility] [facility]. Will refer to Dr. Hutchins with psychiatry for persistent agitation associated with dementia.. 12/21 18:27 Order name: Wrist Right 3 View XRAY; Complete Time: 20:12 ms3 12/21 18:27 Order name: CT Head Brain wo Cont ms3 12/21 20:13 Order name: Splint - Sugar Tong - Forearm; Complete Time: 22:27 ms3 Administered Medications: 12/21 20:46 Not Given (Pt unable to swallow pillss): hydrocodone-acetaminophen5 mg-325 mg 1 tabs PO jb4 once 20:55 Drug: Ibuprofen PO 400 mg PO once Route: PO; jb4 22:00 Follow up: Response: No adverse reaction; No change in condition; Pain is decreased jb4 21:06 Drug: Geodon IM 20 mg IM once Route: IM; Site: right gluteus; jb4 22:00 Follow up: Response: No adverse reaction jb4 22:31 Drug: Midazolam IM 5 mg IM once Route: IM; Site: right vastus lateralis; jb4 22:32 Drug: Midazolam IM 5 mg IM once Route: IM; Site: left vastus lateralis; jb4 12/22 00:49 Follow up: Response: No adverse reaction; Marked relief of symptoms jb4 00:09 Not Given (Physician Discretion): midazolamor iv 5 mg IVP once sp4 00:12 Not Given (Physician Discretion): ondansetron 4 mg IVP once; over 2 minutes jb4 Disposition Summary: 12/22/24 00:06 Discharge Ordered Notes: Location: Home sp4 Problem: new sp4 Symptoms: have improved sp4 Condition: Stable sp4 Diagnosis - History of falling sp4 - Repeated falls sp4 - Distal radial impaction fracture with mild displacement. Ulnar styloid fracture. sp4 Acute Head Injury, Agitation requiring sedation Followup: sp4 - With: Otis Jarquin MD - When: 7 - 10 days - Reason: Recheck today's complaints Followup: sp4 - With: Cuong Palumbo MD - When: 7 - 10 days - Reason: Recheck today's complaints Discharge Instructions: - Discharge Summary Sheet sp4 - Wrist Fracture Treated With Immobilization, [id number] sp4 Forms: - Patient Portal Instructions sp4 Prescriptions: - acetaminophen-codeine 300-60 mg Oral tablet - take 1 tablet ORAL route every 8 hours PRN pain; 20 tablet; Refills: 0, Product sp4 Selection Permitted - lorazepam 1 mg Oral Capsule, ER 24 hr - take 1 capsule ORAL route daily PRN agitation; 30 capsule; Refills: 0, Product sp4 Selection Permitted Signatures: Dispatcher [employer] EDJose Hernandez RN RN jb4 Daniel Acosta DO DO ms3 Jazmin Noel RN RN ko1 Jacob Morales MD MD sp4 Corrections: (The following items were deleted from the chart) 01:26 00:10 Sling ordered. sp4 jb4
--- NOTE | 2024-12-22 00:06 | ER ---
Nurse's Notes [facility] Name: Wilmar Fung Age: 84 yrs Sex: Male : 1940 Arrival Date: 12/21/2024 Time: 17:43 Bed 2 Private MD: Diagnosis: History of falling;Repeated falls;Distal radial impaction fracture with mild displacement. Ulnar styloid fracture. Acute Head Injury, Agitation requiring sedation Presentation: 12/21 18:15 Chief complaint: Patient's son or daughter states: got a call from intermediate saying ko1 patient has a fx of right arm and she needed to bring him to the ER. Coronavirus screen: At this time, the client does not indicate any symptoms associated with coronavirus-19. Ebola Screen: No symptoms or risks identified at this time. Initial Sepsis Screen: Does the patient meet any 2 criteria? No. Patient's initial sepsis screen is negative. Does the patient have a suspected source of infection? No. Patient's initial sepsis screen is negative. Risk Assessment: Do you want to hurt yourself or someone else? Patient reports no desire to harm self or others. Onset of symptoms is unknown. 18:15 Method Of Arrival: Wheelchair ko1 18:15 Acuity: LALA 3 ko1 Triage Assessment: 18:21 General: Appears uncomfortable, Behavior is calm, cooperative. Pain: Complains of pain ko1 in dorsal aspect of right forearm. Historical: - Allergies: 18:21 No Known Allergies; ko1 - Home Meds: 18:21 Unable to obtain [Active]; ko1 - PMHx: 18:21 Depressive disorder; Alzheimer's disease; Hypertensive disorder; ko1 - Immunization history:: Adult Immunizations unknown. - Infectious Disease History:: Denies. - Social history:: Smoking status: Patient denies any tobacco usage or history of. Screenin:40 [facility] ED Fall Risk Assessment (Adult) History of falling in the last 3 months, bp including since admission No falls in past 3 months (0 pts) Confusion or Disorientation Yes (5 pts) Intoxicated or Sedated No (0 pts) Impaired Gait Yes (1 pt) Mobility Assist Device Used Yes (1 pt) Altered Elimination No (0 pt) Score/Fall Risk Level 3 or more points = High Risk Oriented to surroundings, Maintained a safe environment. Abuse screen: Denies threats or abuse. Denies injuries from another. Nutritional screening: No deficits noted. Tuberculosis screening: No symptoms or risk factors identified. Assessment: 18:40 General: Appears in no apparent distress. Behavior is quiet, restless. Musculoskeletal: bp Bony deformity noted of dorsal aspect of right forearm. 20:00 Reassessment: Pt resting in bed with family at the bedside. respirations are even and jb4 unlabored with no s/s of pain or distress noted. 21:00 Reassessment: Patient appears in no apparent distress at this time. No changes from jb4 previously documented assessment. Patient and/or family updated on plan of care and expected duration. Pain level reassessed. 22:15 Reassessment: Patient appears in no apparent distress at this time. Pt family reports jb4 pt is combative and pulling off splint. Provider notified. Instructed to remove splint at this time and give 5mg of Versed IM for aggitation. 23:00 Reassessment: Pt resting in bed peacefully with no s/s of pain or distress noted. jb4 12/22 00:00 Reassessment: Patient appears in no apparent distress at this time. No changes from jb4 previously documented assessment. Patient and/or family updated on plan of care and expected duration. Pain level reassessed. 00:20 Reassessment: pt ready for dsicharge is awaiting transportation from [facility]. bm8 00:24 Reassessment: report given to AUDREY anne at at [facility]. She stated that she bm8 would be getting [facility] ambulance to pick him up ailyn. Vital Signs: 12/21 18:15 BP 143 / 63; Pulse 76; Resp 18; Temp 97.4; Pulse Ox 98% ; ko1 22:30 BP 108 / 68; Pulse 71; Resp 16; Pulse Ox 95% on R/A; jb4 23:00 BP 112 / 50; Pulse 69; Resp 16; Pulse Ox 97% on R/A; jb4 12/22 00:00 BP 137 / 75; Pulse 68; Resp 16; Pulse Ox 95% on R/A; jb4 Radha Coma Score: 00:24 Eye Response: spontaneous(4). Motor Response: obeys commands(6). Verbal Response: bm8 oriented(5). Total: 15. ED Course: 12/21 17:47 Patient arrived in ED. mr 17:52 Daniel Acosta DO is Attending Physician. ms3 18:21 Triage completed. ko1 18:21 Arm band placed on right wrist. Patient placed in waiting room, Patient notified of ko1 wait time. 18:39 Alec Quijano, RN is Primary Nurse. bp 18:40 Patient has correct armband on for positive identification. bp 18:47 Wrist Right 3 View XRAY In Process Unspecified. EDMS 20:35 Attending Physician role handed off by Daniel Acosta DO sp4 20:35 Jacob Morales MD is Attending Physician. sp4 23:43 CT Head Brain wo Cont In Process Unspecified. EDMS 12/22 00:03 Otis Jarquin MD is Referral Physician. sp4 00:09 Cuong Palumbo MD is Referral Physician. sp4 00:24 Provided Education on: post er care instruction given to AUDREY Anne at [address] 00:38 No provider procedures requiring assistance completed. Patient did not have IV access jb4 during this emergency room visit. Administered Medications: 12/21 20:46 Not Given (Pt unable to swallow pillss): hydrocodone-acetaminophen5 mg-325 mg 1 tabs PO jb4 once 20:55 Drug: Ibuprofen PO 400 mg PO once Route: PO; jb4 22:00 Follow up: Response: No adverse reaction; No change in condition; Pain is decreased jb4 21:06 Drug: Geodon IM 20 mg IM once Route: IM; Site: right gluteus; jb4 22:00 Follow up: Response: No adverse reaction jb4 22:31 Drug: Midazolam IM 5 mg IM once Route: IM; Site: right vastus lateralis; jb4 22:32 Drug: Midazolam IM 5 mg IM once Route: IM; Site: left vastus lateralis; jb4 12/22 00:49 Follow up: Response: No adverse reaction; Marked relief of symptoms jb4 00:09 Not Given (Physician Discretion): midazolamor iv 5 mg IVP once sp4 00:12 Not Given (Physician Discretion): ondansetron 4 mg IVP once; over 2 minutes jb4 Medication: 12/21 18:40 VIS not applicable for this client. bp Outcome: 12/22 00:06 Discharge ordered by . sp4 00:24 Discharged to intermediate. Report called to AUDREY Anne bm8 00:24 Condition: stable 00:24 Instructed on discharge instructions, follow up and referral plans. no drinking with medication, no driving heavy equipment, medication usage, safety practices, orthoglass care 01:26 Patient left the ED. jb4 Signatures: Dispatcher [employer] EDMS Nora Grullon, Reg Reg mr AmesJose, RN RN jb4 Alec Quijano, RN RN Daniel Swanson DO DO ms3 Jazmin Noel, RN RN ko1 Jacob Morales MD MD sp4 Pete Mata RN RN bm8 Corrections: (The following items were deleted from the chart) 02:48 0204 22:30 Reassessment: Patient appears in no apparent distress at this time. Pt jb4 resting in bed with eyes closed, respirations even and unlabored. jb4
[2024-12-22 01:31] VITALS: TEMP 97.4
[2024-12-22 01:34] VITALS: BP 137/75; O2SAT 95
--- NOTE | 2024-12-22 01:52 | RAD REPORT ---
PROCEDURE: CT Head Without Intravenous Contrast CLINICAL INDICATION: The patient is 84 years old and is Male; fall TECHNIQUE: Axial computed tomography images of the head/brain without intravenous contrast. Sagittal and coron al reformatted images were created and reviewed. This CT exam was performed using one or more of the following dose reduction techniques: automated exposure control, adjustment of the mA and/or kV according to patient size, and/or use of iterative reconstruction technique. DLP: 904 mGy*cm COMPARISON: None. FINDINGS: BRAIN: Cerebral volume loss and chronic small vessel ischemic changes. No hemorrhage. No mass effect or midline shift. VENTRICLES: Unremarkable. No ventriculomegaly. BONES/JOINTS: Unremarkable. No acute fracture. SOFT TISSUES: Unremarkable. VASCULATURE: Vascular calcifications. SINUSES: Unremarkable as visualized. No acute sinusitis. MASTOID AIR CELLS: Unremarkable as visualized. No mastoid effusion. IMPRESSION: 1. No acute intracranial hemorrhage, hydrocephalus or herniation. 2. Cerebral volume loss and chronic small vessel ischemic changes. Consider MRI brain for further evaluation. Electronically signed by: Rafa Streeter DO 12/22/2024 12:54 AM [facility] 9 Due to temporary technical issues with the [employer] reporting system, reports are being penny d by the in-house radiologist without review as a courtesy to ensure prompt reporting the interpreting radiologist is fully responsible for the content of the report. Transcribed Date/Time: 12/22/2024 1:52 AM
== END 2024-12-22 01:26 | disposition home or self-care (01) ==
LOC: ER 17:43
PROC: 2W3CX1Z Immobilization of Right Lower Arm using Splint (ICD-10-PCS; principal; 2024-12-22)
DX: S52.501A Unspecified fracture of the lower end of right radius, initial encounter for closed fracture (principal); S52.611A Displaced fracture of right ulna styloid process, initial encounter for closed fracture; S09.90XA Unspecified injury of head, initial encounter; R45.1 Restlessness and agitation; R29.6 Repeated falls; Z91.81 History of falling; G30.9 Alzheimer's disease, unspecified; F02.80 Dementia in other diseases classified elsewhere, unspecified severity, without behavioral disturbance, psychotic disturbance, mood disturbance, and anxiety
CPT/HCPCS: 70450; 73110; 29125; J2250; J3486